=== PATIENT | male | born 1995 | race Caucasian/White ===

== ENCOUNTER 2016-08-07 11:40 | Emergency (ER) | payer OTHER ==
[~2016-08-07] VITALS: Ht 175.3 cm; Wt 86.2 kg
[2016-08-07 11:40] VITALS: BP 136/73
[2016-08-07] MEDS ORDERED: NORCO 5-325 TA1 EACH PO (11:48)
[2016-08-07] MEDS ORDERED: PENICILLIN VK250 MG PO (11:50)
== END 2016-08-07 12:10 | disposition home or self-care (01) ==
LOC: ER 11:40
DX: K08.89 Other specified disorders of teeth and supporting structures (principal); F10.99 Alcohol use, unspecified with unspecified alcohol-induced disorder